=== PATIENT | male | born 1940 | race African-American/Black ===

== ENCOUNTER → 2016-07-30 | Outpatient (CLI) | payer MEDICARE, OTHER ==
[~2016-07-30] MED LIST: AMOXICILLIN PO; ATENOLOL PO; AVODART0.5 MG PO; BACLOFEN10 MG PO; BENADRYL IV; BENADRYL PO; COLACE PO; COMBIVENT INH14.7 GM INH; CYPROHEPTADINE H4 MG PO; DEXFOL PO; FLEXERIL PO; GLUCOSAMIDE; KEFLEX500 MG PO; LISINOPRIL PO; LORTAB 7.5-5001 TAB PO; NASONEX17 GM; NEXIUM PO; NIACIN PO; NIACIN250 M3 PO; NORVASC PO; OYSTER CALCIUM500 MG PO; PERCOCET 5-3251 TAB PO; POTASSIUM GLUCONATE PO; PREVACID30 MG/BLIS PO; PRILOSEC PO; REGLAN5 MG PO; ROBITUSSIN ALL118 ML PO; SOLIFENACIN PO; STELAZINE PO; SYNTHROID PO; TOPROL XL50 MG PO; TRAMADOL HCL50 M1 PO; VITAMIN C PO; ZESTRIL10 MG PO; ZITHROMAX PO; ZITHROMAX1 G/PKT; ZITHROMAX1 G/PKT PO
--- NOTE | ~2016-07-30 | US115 ---
[facility] A Service of [facility] RADIOLOGY TEXT RESULTS PATIENT: RAFAEL MONROE SR LOCATION: [facility] : 44 UNIT #: [id number] AGE: [address]: Helder Everett MD SEX: M ORDER DR: [id number] [facility] [address] [place], [place] [address] [id number] O MR#: [id number] Acc #: [id number] NAME: RAFAEL MONROE : 1940 SEX: M STUDY DATE/TIME: 07/30/2016 15:44 UNIT: [facility] ROOM: STUDY DESCRIPTION: US Scrotum and Contents Attending Physician: Helder Everett M.D. Referring Physician: Helder Everett M.D. Ordering Physician: Helder Everett M.D. Primary Care Physician: Primary Care Physician No MEDICAL IMAGING REPORT This report is preliminary unless electronic signature is present EXAM Bilateral scrotal ultrasound with Doppler imaging 07/30/2016 HISTORY Left testicular pain for 10 years. Left groin surgery 3 years ago. COMPARISON Bilateral scrotal ultrasound 07/17/2006. FINDINGS The right testicle measures 3.2 x 1.8 x 2.7 cm. The left testicle measures 2.1 x 2.5 x 1.4 cm. A benign appearing right intratesticular cyst measures 3 x 4 mm. No suspicious solid appearing right or left testicular masses are identified. Both testicles demonstrate otherwise normal homogeneous echotexture. Both testicles demonstrate normal color flow. There are probable small bilateral scrotal varicoceles. No right or left scrotal hydrocele is seen. A 3 mm right epididymal head cyst or spermatocele is incidentally noted. Left epididymis appears unremarkable. IMPRESSION 1. Small bilateral scrotal hydroceles. 2. 3 mm right epididymal head cyst or spermatocele. 3. Benign appearing right testicular cyst measuring about 3 x 4 mm. 4. Normal flow to each testicle. Dictated by... Lamar Michael M.D. THIS IS AN ELECTRONICALLY VERIFIED REPORT Lamar Michael M.D. at 07/31/2016 10:00 AM [facility] A Service of [facility] RADIOLOGY TEXT RESULTS PATIENT: RAFAEL MONROE SR LOCATION: [facility] #: [id number] : 44 UNIT #: [id number] AGE: [address]: Helder Everett MD SEX: M ORDER DR: [email or web address] TD: 07/31/2016 06:18 JOB #: [id number] MEDICAL IMAGING REPORT COPY
== END | disposition home or self-care (01) ==
LOC: CGUS 15:15
DX: N50.82 Scrotal pain (principal); R10.30 Lower abdominal pain, unspecified; N43.3 Hydrocele, unspecified; N44.2 Benign cyst of testis
CPT/HCPCS: 76870; 93976